=== PATIENT | male | born 1970 | race Caucasian/White ===

== ENCOUNTER 2017-10-02 04:43 | Inpatient (IN) | payer OTHER ==
[~2017-10-02] VITALS: Ht 185.4 cm; Wt 99.2 kg
[~2017-10-02 04:43] MED LIST: NOCURR
[2017-10-02] MEDS ORDERED: LISI-662 PO (04:55)
[2017-10-02] MEDS ORDERED: ATOR40TA28 PO (04:55)
[2017-10-02] MEDS ORDERED: METF-444 PO (04:55)
[2017-10-02 05:04] LABS: GLUCOSE,POINT OF CARE 194 MG/DL (70-110)
[2017-10-02 05:46] LABS: ALBUMIN 3.2 g/dL (3.4-5.0); BILIRUBIN,TOTAL 4.4 mg/dL (0.1-1.0); CALCIUM, TOTAL 7.1 mg/dL (8.8-10.5); HEMATOCRIT 44.9 % (41-53); MEAN CORPUSCULAR HEMOGLOBIN 31.9 pg (26.0-34.0); MEAN CORPUSCULAR HGB CONC 35.4 G/dL (31.0-37.0); MEAN CORPUSCULAR VOLUME 90 fL (80-100); POTASSIUM 4.7 mmol/L (3.5-5.1); RED BLOOD CELL COUNT(AUTO) 4.98 MIL/uL (4.50-5.90)
[2017-10-02 05:47] LABS: BASOPHILS % (AUTO) 0.7 % (0.0-2.0); EOSINOPHILS % (AUTO) 0.5 % (1.0-6.0); LYMPHOCYTES # (AUTO) 1.4 K/uL (1.0-4.8); LYMPHOCYTES % (AUTO) 14.1 % (22.0-44.0); MONOCYTES # (AUTO) 0.7 K/uL (0.1-1.0); MONOCYTES % (AUTO) 7.3 % (2.0-9.0); NEUTROPHILS # (AUTO) 7.8 K/uL (1.8-7.7); NEUTROPHILS % (AUTO) 77.4 % (40.0-70.0); PLATELET COUNT (AUTO) 196 K/uL (150-450); RED CELL DISTRIBUTION WIDTH 13.7 % (11.5-14.5)
[2017-10-02 05:49] LABS: HEMOGLOBIN 15.9 g/dL (13.5-17.5)
[2017-10-02] MEDS ORDERED: SODIUM CHLORIDE 0.9% 1,000 ML IV ONE (06:15)
[2017-10-02] MEDS ORDERED: FAMOTIDINE 10 MG/ML 2 ML VIAL IVP ONE (06:15)
[2017-10-02] MEDS ORDERED: ONDANSETRON HCL 4 MG/2 ML VIAL IVP ONE (06:15)
[2017-10-02] MEDS ORDERED: MORPHINE SULFATE 4 MG/ML SYRINGE IVP ONE (06:15)
[2017-10-02 06:28] LABS: APPEARANCE,URINE CLEAR (CLEAR); GLUCOSE, URINE (UA) 100 mg/dL (NEGATIVE); KETONES,URINE 40 mg/dL (NEGATIVE); LEUKOCYTE ESTERASE ,URINE NEGATIVE (NEGATIVE); NITRATE,URINE NEGATIVE (NEGATIVE); OCCULT BLOOD,URINE NEGATIVE (NEGATIVE); PROTEIN,URINE NEGATIVE (NEGATIVE); UROBILINOGEN,URINE 0.2 mg/dL (<=1.0)
[2017-10-02 06:30] LABS: CREATININE 1.66 mg/dL (0.60-1.30)
[2017-10-02 06:32] LABS: TOTAL PROTEIN, SERUM 6.1 g/dL (6.4-8.2)
[2017-10-02 06:32] LABS: AMPHET/METH SCREEN,URINE NEGATIVE (NEGATIVE); BARBITURATE SCREEN, URINE NEGATIVE (NEGATIVE); BENZODIAZEPINES SCREEN,URINE NEGATIVE (NEGATIVE); CANNABINOID SCREEN,URINE NEGATIVE (NEGATIVE); COCAINE SCREEN,URINE NEGATIVE (NEGATIVE); METHADONE SCREEN, URINE NEGATIVE (NEGATIVE); OPIATE SCREEN,URINE NEGATIVE (NEGATIVE)
[2017-10-02 06:33] LABS: PHENCYCLIDINE SCREEN,URINE NEGATIVE (NEGATIVE)
[2017-10-02 06:34] LABS: BILIRUBIN,URINE PRELIM. POSITIVE (NEGATIVE)
[2017-10-02 06:45] LABS: RBC,URINE 0-2 /HPF (0-2); WBC,URINE 0-2 /HPF (0-5)
[2017-10-02 06:46] LABS: BACTERIA,URINE Rare /HPF (None Seen); SQUAMOUS EPITHELIAL CELL,UR Few /LPF (None Seen)
[2017-10-02] MEDS ORDERED: LORazepam 2 MG/ML VIAL IVP ONE (07:00)
[2017-10-02 07:29] LABS: MAGNESIUM 1.7 mg/dL (1.80-2.40)
[2017-10-02] MEDS ORDERED: 0.9% SODIUM CHLORIDE 10 ML SYRINGE IVP PRN (08:45)
[2017-10-02] MEDS ORDERED: ACETAMINOPHEN 325 MG TABLET PO PRN ×2 (08:45→09:45)
[2017-10-02] MEDS ORDERED: ONDANSETRON HCL 4 MG/2 ML VIAL IVP PRN (09:45)
[2017-10-02] MEDS ORDERED: BISACODYL 10 MG RECTAL RECTAL SUPPOSITORY PR PRN (09:45)
[2017-10-02 09:57] VITALS: BP 143/95
[2017-10-02] MEDS ORDERED: DEXTROSE 50%-WATER 25 GM/50 ML SYRINGE IVP PRN (10:00)
[2017-10-02] MEDS: PANTOPRAZOLE SODIUM 40 MG/VIAL IVP SCH (10:21)
[2017-10-02] MEDS: SODIUM CHLORIDE 0.9% 1,000 ML IV SCH ×2 (10:21→20:48)
[2017-10-02] MEDS: MORPHINE SULFATE 2 MG/ML SYRINGE IVP PRN ×2 (10:40→20:48)
[2017-10-02 11:23] VITALS: BP 145/93
[2017-10-02] MEDS: INSULIN LISPRO 100 UNITS/ML SQ PRN ×2 (12:42→18:03)
[2017-10-02 12:44] LABS: GLUCOMETER DEV NAME(LOC) 6N 1E; GLUCOSE,POINT OF CARE 166 MG/DL (70-110)
[2017-10-02] MEDS ORDERED: MAGNESIUM OXIDE 400 MG TABLET PO ONE (13:45)
[2017-10-02 15:20] VITALS: BP 145/93
[2017-10-02] MEDS ORDERED: GADOBUTROL 1 MMOL/ML 10 ML VIAL IVP ONE (16:07)
[2017-10-02 19:20] VITALS: BP 151/96
[2017-10-02] MEDS: DOCUSATE SODIUM 100 MG CAPSULE PO SCH (19:59)
[2017-10-02 23:18] LABS: GLUCOMETER DEV NAME(LOC) 6N 1E; GLUCOSE,POINT OF CARE 186 MG/DL (70-110)
[2017-10-02 23:18] LABS: GLUCOMETER DEV NAME(LOC) 6N 1E; GLUCOSE,POINT OF CARE 155 MG/DL (70-110)
[2017-10-02 23:23] VITALS: BP 147/90
[2017-10-03 04:25] VITALS: BP 147/96
[2017-10-03 06:07] LABS: BASOPHILS % (AUTO) 0.6 % (0.0-2.0); EOSINOPHILS % (AUTO) 0.6 % (1.0-6.0); HEMATOCRIT 42.2 % (41-53); LYMPHOCYTES # (AUTO) 1.4 K/uL (1.0-4.8); LYMPHOCYTES % (AUTO) 12.8 % (22.0-44.0); MEAN CORPUSCULAR HEMOGLOBIN 32.4 pg (26.0-34.0); MEAN CORPUSCULAR HGB CONC 35.5 G/dL (31.0-37.0); MEAN CORPUSCULAR VOLUME 91 fL (80-100); MONOCYTES # (AUTO) 0.7 K/uL (0.1-1.0); MONOCYTES % (AUTO) 6.9 % (2.0-9.0); NEUTROPHILS # (AUTO) 8.6 K/uL (1.8-7.7); NEUTROPHILS % (AUTO) 79.1 % (40.0-70.0); PLATELET COUNT (AUTO) 143 K/uL (150-450); RED BLOOD CELL COUNT(AUTO) 4.63 MIL/uL (4.50-5.90); RED CELL DISTRIBUTION WIDTH 13.9 % (11.5-14.5)
[2017-10-03 06:35] LABS: ALBUMIN 2.9 g/dL (3.4-5.0); ALKALINE PHOSPHATASE 604 U/L (46-116); ANION GAP 9 mmol/L (8-16); BILIRUBIN,TOTAL 2.1 mg/dL (0.1-1.0); CALCIUM, TOTAL 7.9 mg/dL (8.8-10.5); CARBON DIOXIDE 25 mmol/L (22-29); CHLORIDE 96 mmol/L (98-107); CREATININE 1.02 mg/dL (0.60-1.30); GLOMERULAR FILTR. RATE CALC > 60 mL/min (>60); GLUCOSE,RANDOM 149 mg/dL (70-110); POTASSIUM 3.9 mmol/L (3.5-5.1); SODIUM SERUM 130 mmol/L (136-145); TOTAL PROTEIN, SERUM 6.6 g/dL (6.4-8.2); UREA NITROGEN, BLOOD 4 mg/dL (7-18)
[2017-10-03] MEDS: SODIUM CHLORIDE 0.9% 1,000 ML IV SCH (06:40)
[2017-10-03 06:49] LABS: GLUCOMETER DEV NAME(LOC) 6N 1E; GLUCOSE,POINT OF CARE 161 MG/DL (70-110)
[2017-10-03 08:00] VITALS: BP 142/89
[2017-10-03] MEDS: PANTOPRAZOLE SODIUM 40 MG/VIAL IVP SCH (08:38)
[2017-10-03] MEDS: DOCUSATE SODIUM 100 MG CAPSULE PO SCH (08:39)
[2017-10-03 08:43] LABS: ALANINE AMINOTRANSFERASE 854 U/L (12-78); ASPARTATE AMINOTRANSFERASE 569 U/L (15-37)
[2017-10-03] MEDS ORDERED: PANTOPRAZOLE SODIUM 40 MG/VIAL IVP SCH (09:00)
== END 2017-10-03 11:30 | disposition left against medical advice (07) | DRG 282 ==
LOC: EMS 04:44 → 6N 09:45
PROVIDERS: ADMIT Internal Medicine; ATTEND Internal Medicine
DX: K85.90 Acute pancreatitis without necrosis or infection, unspecified (principal); N17.9 Acute kidney failure, unspecified; K70.10 Alcoholic hepatitis without ascites; I10 Essential (primary) hypertension; E87.1 Hypo-osmolality and hyponatremia; E78.00 Pure hypercholesterolemia, unspecified; E11.9 Type 2 diabetes mellitus without complications; F10.10 Alcohol abuse, uncomplicated; Z53.20 Procedure and treatment not carried out because of patient's decision for unspecified reasons; F41.0 Panic disorder [episodic paroxysmal anxiety]; Z91.19 Patient's noncompliance with other medical treatment and regimen; Z83.3 Family history of diabetes mellitus; Z82.49 Family history of ischemic heart disease and other diseases of the circulatory system
CPT/HCPCS: 76700; 80074; 83615; 83735; 84100; 93005; 96361; 96374; 96375; 99285; A9585; C9113; G0480; J2060; J2270; J2405; J3490; J7030

== ENCOUNTER 2021-06-13 13:38 | Emergency (ER) | payer OTHER ==
[~2021-06-13 13:38] MED LIST changes: +ATOR40TA28 PO; +LACT30L PO; +LISI-894 PO; +MAGN400T7 PO; +METF-444 PO; +NACL1 PO; -NOCURR; +PIOG15TA66 PO; +RIFAX550 PO; +TIMO10DR28 OS
== END 2021-06-13 15:33 | disposition left against medical advice (07) ==
LOC: EMS 13:38
DX: F41.9 Anxiety disorder, unspecified (principal); Z53.21 Procedure and treatment not carried out due to patient leaving prior to being seen by health care provider

== ENCOUNTER 2021-06-18 15:41 | Emergency (ER) | payer OTHER ==
[~2021-06-18] VITALS: Ht 182.9 cm; Wt 90.9 kg
[~2021-06-18 15:41] MED LIST changes: +LACT10SO10 PO; -LACT30L PO
[2021-06-18] MEDS ORDERED: SODIUM CHLORIDE 0.9% 1,000 ML IV ONE ×2 (16:15→17:00)
[2021-06-18 16:32] LABS: BASOPHILS % (AUTO) 0.9 % (0.0-2.0); EOSINOPHILS % (AUTO) 0.4 % (1.0-6.0); HEMATOCRIT 44.9 % (41-53); HEMOGLOBIN 15.5 g/dL (13.5-17.5); LYMPHOCYTES # (AUTO) 1.5 K/uL (1.0-4.8); MEAN CORPUSCULAR HEMOGLOBIN 32.4 pg (26.0-34.0); MEAN CORPUSCULAR HGB CONC 34.4 G/dL (31.0-37.0); MEAN CORPUSCULAR VOLUME 94 fL (80-100); MONOCYTES # (AUTO) 0.3 K/uL (0.1-1.0); MONOCYTES % (AUTO) 6.8 % (2.0-9.0); NEUTROPHILS % (AUTO) 52.9 % (40.0-70.0); PLATELET COUNT (AUTO) 227 K/uL (150-450); RED BLOOD CELL COUNT(AUTO) 4.77 MIL/uL (4.50-5.90); RED CELL DISTRIBUTION WIDTH 13.5 % (11.5-14.5)
[2021-06-18 16:48] LABS: ALANINE AMINOTRANSFERASE 100 U/L (12-78); ALKALINE PHOSPHATASE 133 U/L (46-116); ANION GAP 14 mmol/L (8-16); ASPARTATE AMINOTRANSFERASE 92 U/L (15-37); BILIRUBIN,TOTAL 0.5 mg/dL (0.1-1.0); CALCIUM, TOTAL 8.5 mg/dL (8.8-10.5); CARBON DIOXIDE 23 mmol/L (22-29); CHLORIDE 95 mmol/L (98-107); CREATININE 1.07 mg/dL (0.60-1.30); GLOMERULAR FILTR. RATE CALC > 60 mL/min (>60); POTASSIUM 3.7 mmol/L (3.5-5.1); SODIUM SERUM 132 mmol/L (136-145); TOTAL PROTEIN, SERUM 7.6 g/dL (6.4-8.2); UREA NITROGEN, BLOOD 6 mg/dL (7-18)
[2021-06-18 16:53] LABS: GLUCOSE,RANDOM 496 mg/dL (70-110)
[2021-06-18] MEDS ORDERED: LORazepam 2 MG/ML VIAL IVP ONE (17:00)
[2021-06-18] MEDS ORDERED: INSULIN REGULAR, HUMAN 100 UNITS/ML IVP ONE (17:00)
[2021-06-18 19:10] LABS: GLUCOSE,POINT OF CARE 347 MG/DL (70-110)
[2021-06-18 19:58] VITALS: BP 152/95
[2021-06-18 20:51] LABS: GLUCOSE,POINT OF CARE 257 MG/DL (70-110)
== END 2021-06-18 21:10 | disposition home or self-care (01) ==
LOC: EMS 15:41
DX: E11.65 Type 2 diabetes mellitus with hyperglycemia (principal); R00.2 Palpitations; F10.129 Alcohol abuse with intoxication, unspecified; F41.9 Anxiety disorder, unspecified; E78.00 Pure hypercholesterolemia, unspecified; Z79.899 Other long term (current) drug therapy; Y90.8 Blood alcohol level of 240 mg/100 ml or more
CPT/HCPCS: 36415; 71045; 80053; 82962; 83735; 85025; 93005; 96361; 96374; 96375; 99285; G0480; J1815; J2060; J7030

== ENCOUNTER 2022-11-02 16:06 | Inpatient (IN) | payer MEDICAID, OTHER ==
[~2022-11-02] VITALS: Ht 185.4 cm; Wt 90.7 kg
[~2022-11-02 16:06] MED LIST changes: +COSO10OS OS; -NACL1 PO; -TIMO10DR28 OS; +[UNRECOGNIZED DRUG - CODE] PO
[2022-11-02 16:36] LABS: GLUCOMETER DEV NAME(LOC) ER.6
[2022-11-02 17:23] LABS: EOSINOPHILS % (AUTO) 1.8 % (1.0-6.0); HEMATOCRIT 41.9 % (41-53); HEMOGLOBIN 14.4 g/dL (13.5-17.5); LYMPHOCYTES # (AUTO) 2.1 K/uL (1.0-4.8); LYMPHOCYTES % (AUTO) 38.6 % (22.0-44.0); MEAN CORPUSCULAR HEMOGLOBIN 32.7 pg (26.0-34.0); MEAN CORPUSCULAR HGB CONC 34.3 G/dL (31.0-37.0); MEAN CORPUSCULAR VOLUME 95 fL (80-100); MONOCYTES # (AUTO) 0.5 K/uL (0.1-1.0); MONOCYTES % (AUTO) 8.6 % (2.0-9.0); NEUTROPHILS # (AUTO) 2.6 K/uL (1.8-7.7); PLATELET COUNT (AUTO) 416 K/uL (150-450)
[2022-11-02 17:25] LABS: COVID AG,FIA SOURCE NASOPHARYNGEAL
[2022-11-02 17:39] LABS: ANION GAP 18 mmol/L (8-16); CALCIUM, TOTAL 8.4 mg/dL (8.8-10.5); CARBON DIOXIDE 21 mmol/L (22-29); CHLORIDE 95 mmol/L (98-107); CREATININE 0.69 mg/dL (0.60-1.30); GLOMERULAR FILTR. RATE CALC > 60 mL/min (>60); GLUCOSE,RANDOM 153 mg/dL (70-110); POTASSIUM 3.8 mmol/L (3.5-5.1); SODIUM SERUM 134 mmol/L (136-145)
[2022-11-02 17:44] LABS: ALANINE AMINOTRANSFERASE 58 U/L (12-78); ALBUMIN 3.9 g/dL (3.4-5.0); ALKALINE PHOSPHATASE 176 U/L (46-116); ASPARTATE AMINOTRANSFERASE 65 U/L (15-37); BILIRUBIN,TOTAL 0.3 mg/dL (0.1-1.0); TOTAL PROTEIN, SERUM 7.6 g/dL (6.4-8.2)
[2022-11-02 17:53] LABS: ACETAMINOPHEN < 2 mcg/mL (10-30)
[2022-11-02 18:00] LABS: AMPHET/METH SCREEN,URINE NEGATIVE (NEGATIVE); BARBITURATE SCREEN, URINE NEGATIVE (NEGATIVE); BENZODIAZEPINES SCREEN,URINE NEGATIVE (NEGATIVE); CANNABINOID SCREEN,URINE NEGATIVE (NEGATIVE); COCAINE SCREEN,URINE NEGATIVE (NEGATIVE); METHADONE SCREEN, URINE NEGATIVE (NEGATIVE); OPIATE SCREEN,URINE NEGATIVE (NEGATIVE); PHENCYCLIDINE SCREEN,URINE NEGATIVE (NEGATIVE)
[2022-11-02 18:30] LABS: SALICYLATE 1.1 mg/dL (2.8-20.0)
[2022-11-03] VITALS (7 sets, daily range): BP systolic 117–155; BP diastolic 68–100; PULSE 90–129; RESP 16–18; TEMP 97.4–98.5; O2SAT 95–98
[2022-11-03] MEDS ORDERED: LORazepam 2 MG TABLET PO PRN (00:30)
[2022-11-03] MEDS ORDERED: ZOLPIDEM TARTRATE 10 MG TABLET PO PRN (00:30)
[2022-11-03] MEDS ORDERED: HALOPERIDOL 5 MG TABLET PO PRN (00:30)
[2022-11-03] MEDS ORDERED: GLUCAGON,HUMAN RECOMBINANT 1 MG VIAL IM PRN (11:00)
[2022-11-03] MEDS: INSULIN LISPRO 100 UNITS/ML SQ PRN ×3 (11:27→20:18)
[2022-11-03] MEDS: LISINOPRIL 20 MG TABLET PO SCH (11:32)
[2022-11-03 11:46] LABS: GLUCOMETER DEV NAME(LOC) BV2S.
[2022-11-03] MEDS: LACTULOSE 20 GM/30 ML SOLUTION UDCUP PO SCH (15:54)
[2022-11-03 16:26] LABS: GLUCOMETER DEV NAME(LOC) BV2S.
[2022-11-03] MEDS: MetFORMIN HCL 500 MG TABLET PO SCH (16:52)
[2022-11-03] MEDS: RIFAXIMIN 550 MG TABLET PO SCH (16:52)
[2022-11-03] MEDS: GABAPENTIN 300 MG CAPSULE PO SCH (16:52)
[2022-11-03] MEDS: ATORVASTATIN CALCIUM 10 MG TABLET PO SCH (20:12)
[2022-11-03 20:40] LABS: GLUCOMETER DEV NAME(LOC) BV2S.
[2022-11-04] MEDS: LACTULOSE 20 GM/30 ML SOLUTION UDCUP PO SCH ×3 (00:18→16:22)
[2022-11-04 01:04] VITALS: BP 128/72; PULSE 82; RESP 18; TEMP 97.8; O2SAT 96
[2022-11-04 05:30] VITALS: BP 122/68; PULSE 78; RESP 16; TEMP 98.2; O2SAT 98
[2022-11-04 06:22] LABS: GLUCOMETER DEV NAME(LOC) BV2S.
[2022-11-04] MEDS: MetFORMIN HCL 500 MG TABLET PO SCH ×2 (06:26→16:28)
[2022-11-04] MEDS: INSULIN LISPRO 100 UNITS/ML SQ PRN ×4 (06:27→20:46)
[2022-11-04 08:30] VITALS: BP 130/80; PULSE 130; RESP 18; TEMP 98.9; O2SAT 97
[2022-11-04] MEDS: RIFAXIMIN 550 MG TABLET PO SCH ×2 (08:39→16:21)
[2022-11-04] MEDS: EMPAGLIFLOZIN 25 MG TABLET PO SCH (08:39)
[2022-11-04] MEDS: PIOGLITAZONE HCL 45 MG TABLET PO SCH (08:39)
[2022-11-04] MEDS: LISINOPRIL 20 MG TABLET PO SCH (08:39)
[2022-11-04] MEDS: GABAPENTIN 300 MG CAPSULE PO SCH ×2 (08:39→16:21)
[2022-11-04] MEDS: DORZOLAMIDE/TIMOLOL 2-0.5% [22.3-6.8MG/ML] 10 ML OPHTHALMIC SOLUTION OS SCH ×2 (09:00→16:21)
[2022-11-04 10:13] VITALS: BP 107/56; PULSE 66; RESP 16; TEMP 97.8; O2SAT 99
[2022-11-04 11:41] LABS: GLUCOMETER DEV NAME(LOC) BV2S.
[2022-11-04 14:05] VITALS: BP 108/66; PULSE 94; RESP 18; TEMP 97.5; O2SAT 98
[2022-11-04 16:47] LABS: GLUCOMETER DEV NAME(LOC) BV2S.
[2022-11-04 20:18] VITALS: BP 113/77; PULSE 66; RESP 17; TEMP 97.8; O2SAT 98
[2022-11-04] MEDS: ATORVASTATIN CALCIUM 10 MG TABLET PO SCH (20:28)
[2022-11-05 01:02] LABS: GLUCOMETER DEV NAME(LOC) BV2S.
[2022-11-05] MEDS: LACTULOSE 20 GM/30 ML SOLUTION UDCUP PO SCH ×2 (01:07→08:19)
[2022-11-05] MEDS: MetFORMIN HCL 500 MG TABLET PO SCH ×2 (06:13→16:15)
[2022-11-05] MEDS: INSULIN LISPRO 100 UNITS/ML SQ PRN ×2 (06:15→11:30)
[2022-11-05 06:31] LABS: GLUCOMETER DEV NAME(LOC) BV2S.
[2022-11-05 08:12] VITALS: BP 119/85; PULSE 90; RESP 18; TEMP 97.8; O2SAT 97
[2022-11-05] MEDS: EMPAGLIFLOZIN 25 MG TABLET PO SCH (08:19)
[2022-11-05] MEDS: GABAPENTIN 300 MG CAPSULE PO SCH ×2 (08:19→16:15)
[2022-11-05] MEDS: DORZOLAMIDE/TIMOLOL 2-0.5% [22.3-6.8MG/ML] 10 ML OPHTHALMIC SOLUTION OS SCH (08:19)
[2022-11-05] MEDS: LISINOPRIL 20 MG TABLET PO SCH (08:19)
[2022-11-05] MEDS: PIOGLITAZONE HCL 45 MG TABLET PO SCH (08:19)
[2022-11-05] MEDS: RIFAXIMIN 550 MG TABLET PO SCH ×2 (08:20→16:14)
[2022-11-05 13:16] LABS: GLUCOMETER DEV NAME(LOC) BV2S.
[2022-11-05] MEDS ORDERED: GABA-1181 PO (13:58)
[2022-11-05] MEDS ORDERED: SERT-158 PO (14:01)
[2022-11-05] MEDS ORDERED: LACT10SO10 PO (14:06)
[2022-11-05] MEDS ORDERED: RIFAX550 PO (14:10)
[2022-11-05] MEDS ORDERED: EMPA25TA3 PO (14:12)
== END 2022-11-05 16:15 | disposition home or self-care (01) | DRG 751 ==
LOC: EMS 16:07 → B2S 11-03 06:16
PROVIDERS: ADMIT Psychiatry & Neurology Child & Adolescent Psychiatry; ATTEND Psychiatry & Neurology Child & Adolescent Psychiatry
DX: F33.2 Major depressive disorder, recurrent severe without psychotic features (principal); K76.82 Hepatic encephalopathy; R45.851 Suicidal ideations; Z20.822 Contact with and (suspected) exposure to COVID-19; K74.60 Unspecified cirrhosis of liver; E11.9 Type 2 diabetes mellitus without complications; E78.00 Pure hypercholesterolemia, unspecified; F10.229 Alcohol dependence with intoxication, unspecified; I10 Essential (primary) hypertension; Y90.8 Blood alcohol level of 240 mg/100 ml or more
CPT/HCPCS: 80053; 80307; 82962; 85025; 87081; 93005; 99291; G0480; G0481; Q9967

== ENCOUNTER 2022-11-15 13:37 | Emergency (ER) | payer MEDICAID, OTHER ==
[~2022-11-15] VITALS: Ht 175.3 cm; Wt 89.0 kg
[~2022-11-15 13:37] MED LIST changes: +EMPA25TA3 PO; +GABA-1181 PO; -MAGN400T7 PO; +SERT-158 PO; -[UNRECOGNIZED DRUG - CODE] PO
[2022-11-15 14:34] VITALS: TEMP 97.9
[2022-11-15] MEDS ORDERED: SODIUM CHLORIDE 0.9% 1,000 ML IV ONE ×2 (14:45→16:15)
[2022-11-15 14:51] LABS: GLUCOMETER DEV NAME(LOC) ER.6
[2022-11-15 14:54] LABS: BASOPHILS % (AUTO) 1.4 % (0.0-2.0); EOSINOPHILS % (AUTO) 0.5 % (1.0-6.0); HEMATOCRIT 41.7 % (41-53); HEMOGLOBIN 14.2 g/dL (13.5-17.5); LYMPHOCYTES # (AUTO) 1.4 K/uL (1.0-4.8); LYMPHOCYTES % (AUTO) 32.1 % (22.0-44.0); MEAN CORPUSCULAR HEMOGLOBIN 32.8 pg (26.0-34.0); MEAN CORPUSCULAR HGB CONC 34.1 G/dL (31.0-37.0); MEAN CORPUSCULAR VOLUME 96 fL (80-100); MONOCYTES # (AUTO) 0.4 K/uL (0.1-1.0); MONOCYTES % (AUTO) 9.6 % (2.0-9.0); NEUTROPHILS # (AUTO) 2.4 K/uL (1.8-7.7); NEUTROPHILS % (AUTO) 56.4 % (40.0-70.0); PLATELET COUNT (AUTO) 223 K/uL (150-450); RED BLOOD CELL COUNT(AUTO) 4.34 MIL/uL (4.50-5.90); RED CELL DISTRIBUTION WIDTH 16.7 % (11.5-14.5)
[2022-11-15 15:05] LABS: ANION GAP 15 mmol/L (8-16); CALCIUM, TOTAL 7.8 mg/dL (8.8-10.5); CARBON DIOXIDE 24 mmol/L (22-29); CHLORIDE 101 mmol/L (98-107); CREATININE 0.78 mg/dL (0.60-1.30); GLOMERULAR FILTR. RATE CALC > 60 mL/min (>60); GLUCOSE,RANDOM 228 mg/dL (70-110); POTASSIUM 3.3 mmol/L (3.5-5.1); SODIUM SERUM 140 mmol/L (136-145)
[2022-11-15 15:08] LABS: ALANINE AMINOTRANSFERASE 38 U/L (12-78); ALBUMIN 3.6 g/dL (3.4-5.0); ALKALINE PHOSPHATASE 149 U/L (46-116); ASPARTATE AMINOTRANSFERASE 55 U/L (15-37); BILIRUBIN,TOTAL 0.3 mg/dL (0.1-1.0); TOTAL PROTEIN, SERUM 6.9 g/dL (6.4-8.2)
[2022-11-15 18:09] VITALS: BP 135/89; PULSE 96; RESP 18
== END 2022-11-15 22:03 | disposition home or self-care (01) ==
LOC: EMS 13:37
DX: F10.129 Alcohol abuse with intoxication, unspecified (principal); E11.65 Type 2 diabetes mellitus with hyperglycemia; K70.30 Alcoholic cirrhosis of liver without ascites; F10.10 Alcohol abuse, uncomplicated; E78.00 Pure hypercholesterolemia, unspecified; I10 Essential (primary) hypertension; K76.9 Liver disease, unspecified
CPT/HCPCS: 99284; 96360; 96361; 80053; 82962; 85025; 36415; G0480